=== PATIENT | male | born 1965 | race Caucasian/White ===

== ENCOUNTER 2019-04-29 11:16 | Emergency (ER) | payer OTHER ==
[~2019-04-29] VITALS: Ht 180.3 cm; Wt 77.1 kg
[~2019-04-29 11:16] MED LIST: APAP/HYDROCODON1 T46 PO; B12,B-12,B 12500 MC1 PO; CIPRO500 MG PO; DOXYCYCLINE100 M2 PO; FOLIC ACID1 MG PO; NEURONTIN300 MG PO; SINGULAIR10 MG PO; VOLTAREN50 M1 PO
[2019-04-29 11:25] VITALS: BP 149/93
[2019-04-29] MEDS ORDERED: NORCO 5-325 TA1 EACH PO (13:07)
[2019-04-29] MEDS ORDERED: PREDNISONE50 MG PO (13:07)
== END 2019-04-29 13:24 | disposition home or self-care (01) ==
LOC: ED 11:16
DX: S86.911A Strain of unspecified muscle(s) and tendon(s) at lower leg level, right leg, initial encounter (principal); I10 Essential (primary) hypertension; Z79.899 Other long term (current) drug therapy; Z90.49 Acquired absence of other specified parts of digestive tract; Z91.048 Other nonmedicinal substance allergy status; X58.XXXA Exposure to other specified factors, initial encounter; Y93.89 Activity, other specified; Y92.89 Other specified places as the place of occurrence of the external cause; Y99.8 Other external cause status

== ENCOUNTER → 2019-05-28 | Outpatient (CLI) | payer OTHER ==
[~2019-05-28] MED LIST changes: +NORCO 5-325 TA1 EACH PO; +PREDNISONE50 MG PO
== END | disposition home or self-care (01) ==
LOC: RAD 13:40
DX: M79.641 Pain in right hand (principal); M79.642 Pain in left hand

== ENCOUNTER → 2020-01-08 | Outpatient (CLI) | payer OTHER ==
--- NOTE | 2020-01-08 10:39 | NUR ---
SPEECH PATHOLOGY Outpatient MBS completed as per orders. Patient was alert and cooperative for testing and reported that for about the past five years, he has been experiencing food and liquid sticking in mid sternal area. He stated that it seems to be worsening. At times, he can reportedly relieve the feeling by taking a drink of water, but he stated that other times, he vomits the food back up. Medical history includes reflux, HTN and allergies. He also stated that he was told he may have an ulcer in his stomach and was recently given medication for that. Patient consumes a regular diet and thin liquid. Respiratory status was WNL. Oral exam revealed presence of natural teeth on bottom only, with most back teeth missing. Lingual/labial and buccal skills were WNL in terms of strength, ROM and coordination. He was assessed with puree, solids and thin liquid. Results revealed oral and pharyngeal swallowing skills WNL. Due to the symptoms he presents with, his deficits appear to be esophageal in nature. Recommend he follow with a lease broker. Results and bobby. were shared with patient who verbalized understanding. DIctated report to follow. Thank you for this referral. TETE NEGRO MSCCC-KE[facility] HEADER
== END | disposition home or self-care (01) ==
LOC: RAD/SH 09:54
PROVIDERS: ATTEND Internal Medicine
DX: R13.10 Dysphagia, unspecified (principal)

== ENCOUNTER → 2020-01-23 | Outpatient (CLI) | payer OTHER | END | disposition home or self-care (01) | LOC: US 09:38 | PROVIDERS: ATTEND Internal Medicine | DX: R13.10 Dysphagia, unspecified (principal) ==